=== PATIENT | female | born 1970 | race Caucasian/White ===

== ENCOUNTER → 2017-04-02 | Outpatient (CLI) | payer OTHER | LOC: CIMAGING 08:27 | PROVIDERS: ATTEND Family Medicine | DX: Z12.31 Encounter for screening mammogram for malignant neoplasm of breast (principal) | CPT/HCPCS: G0202 ==

== ENCOUNTER 2017-07-07 19:03 | Emergency (ER) | payer OTHER ==
--- NOTE | 2017-07-07 19:18 | EDPHY ---
H & P Stated Complaint: says n/v last pm, today tired/chills/fever, thinks she has uti also Source: Patient Exam Limitations: No limitations - Medical/Surgical History Hx Asthma: No Hx Chronic Respiratory Disease: No Hx Diabetes: No Hx Cardiac Disease: Yes Hx Renal Disease: No Hx Cirrhosis: No Hx Alcoholism: No Hx HIV/AIDS: No Hx Splenectomy or Spleen Trauma: No Other PMH: r ankle surgery, hysterectomy, hypothyroid, hypertension - Social History Smoking Status: Never smoked Time Seen by Provider: 07/07/17 19:18 HPI/ROS: HPI: This is a 47-year-old female who presents with Chief Complaint: says n/v last pm, today tired/chills/fever, thinks she has uti also Location:body Quality: Fever Duration: Since last night Signs and Symptoms: + fever, + nausea, + vomiting, no hematemesis, no blood in stool, no abdominal bloating, no diarrhea, + lower back pain, +o urinary symptoms, no vaginal bleeding/discharge, no indigestion, no chest pain, no shortness of breath Timing: Rapid onset, constant Severity: Moderate to severe Context: Patient presents with sudden onset of fatigue, chills, fever that started last night. She reports for the last 5 days she has had some increasing dysuria and is concerned now that she may have a urinary tract infection on top of what else is going on. She does complain of a dry cough with clear rhinorrhea. She was treated for sinus infection 1 month ago with antibiotics. Did not receive influenza vaccine this year. Denies meningismus/ abdominal pain/diarrhea/ear pain/sinus pain. Took Advil 1 hr prior to arrival. No recent long distance travel. Modifying Factors: See above Comment: ROS: see HPI Constitutional: + fever, + chills, no weight loss Eyes: No blurred vision Respiratory: No shortness of breath, no cough Cardiovascular: No chest pain, no palpitations Gastrointestinal: + nausea, + vomiting, no diarrhea, no hematemesis, no blood in stool Genitourinary: + dysuria, no blood in urine Extremities: No myalgias, no edema Neurologic: No weakness, no numbness Skin: No rashes, no petechiae Hematologic: No bruising, no bleeding MEDICAL/SURGICAL/SOCIAL HISTORY: Medical history: Hypothyroidism, hypertension Surgical history: r ankle surgery, hysterectomy Social history: . Employed. Family history noncontributory. CONSTITUTIONAL: Ill but nontoxic-appearing adult white female, awake and alert , no obvious distress HEENT: Atraumatic and normocephalic, PERRL, EOMI. Tympanic membranes clear. Oropharynx clear, no exudate and moist pink mucosa. Airway patent. No lymphadenopathy. No meningismus. Cardiovascular: Normal S1/S2, tachycardia, regular rhythm, without murmur rub or gallop. PULMONARY/CHEST: Symmetrical and nontender. Clear to auscultation bilaterally. Good air movement. No accessory muscle usage. ABDOMEN: Soft, nondistended, nontender, no rebound, no guarding, no peritoneal signs, no masses or organomegaly. No CVAT. EXTREMITIES: 2/2 pulses, strength 5/5, no deformities, no clubbing, no cyanosis or edema. Negative Homans sign. NEUROLOGICAL: no focal neuro deficits. GCS 15. SKIN: Warm and dry, no erythema. no rash. Good capillary refill. (Sushma Caballero) Constitutional: Initial Vital Signs Temperature (C) 38.1 C 07/07/17 19:08 Heart Rate 132 H 07/07/17 19:08 Respiratory Rate 18 07/07/17 19:08 Blood Pressure 143/96 H 07/07/17 19:08 O2 Sat (%) 89 L 07/07/17 19:08 O2 Delivery Mode Room Air O2 (L/minute) 2 Allergies/Adverse Reactions: No Known Allergies Allergy (Verified 07/07/17 19:13) Home Medications: Medication Instructions Recorded Herbals/Supplements -Info Only 1 ea PO DAILY 05/10/14 Ibuprofen [Motrin (OTC)] 400 mg PO Q6 PRN 05/10/14 Famotidine [Pepcid 20 MG (*)] 20 mg PO DAILY PRN 05/14/14 Ciprofloxacin [Cipro] 500 mg PO BID #20 tab 07/07/17 Promethazine HCl 25 mg PO Q6 PRN #10 tablet 07/07/17 Triamterene 07/07/17 Medical Decision Making - Diagnostics Imaging Results: Imaging Impressions Chest X-Ray 07/07/17 19:23 Impression: Possible early left lower lobe pneumonia. ED Course/Re-evaluation: Urinalysis, chest x-ray, labs, IV fluids, IV medications, oral medications ordered Vital signs reviewed upon arrival in show O2 sats 89% on room air and tachycardia. Low risk for pulmonary embolism. Will evaluate for pyelonephritis versus influenza versus pneumonia. Given 2 L normal saline, IV Toradol, p.o. Tylenol 1999: Labs reviewed: Minimal leukocytosis, potassium 2.7; taking triamterene; magnesium 1.4; Given p.o. potassium supplementation 40 mEq and magnesium oxide 800 mg. No signs of lactic acidosis. UA shows infection; sent for urine culture; IV Rocephin [address] abdomen and pelvis scan ordered but patient politely declined. Abdomen soft and nontender. Doubt surgical abdomen. Influenza negative 2199: Reassessed patient who reports that she feels 100% better. Again discussed obtaining imaging for abdomen and pelvis and she politely decline. Will treat as early pyelonephritis with fluoroquinolones. Rx Cipro given. Vital signs repeated at discharge and greatly improved. Passed p.o. Trial. This patient was seen under the supervision of my secondary supervising physician. I evaluated care for this patient independently. Discussed this patient with Dr. Pena who did not see the patient. (Sushma Caballero) The patient was evaluated and managed by the physician print shop assistant. I have reviewed this chart and I agree with the findings and plan of care as documented , as indicated by my signature. I am the secondary supervising physician. ( Sandrine Pena) Differential Diagnosis: Adult fever including but not limited to viral syndromes including influenza, urinary tract infection, pneumonia and sepsis. (Sushma Caballero) - Data Points Laboratory Results: Laboratory Results 07/07/17 19:32 07/07/17 19:32 07/07/17 07/07/17 07/07/17 20:23 20:20 19:35 WBC RBC Hgb Hct MCV MCH MCHC RDW Plt Count MPV Neut % (Auto) Lymph % (Auto) [place] % (Auto) Eos % (Auto) Baso % (Auto) Nucleat RBC Rel Count Absolute Neuts (auto) Absolute Lymphs (auto) Absolute Monos (auto) Absolute Eos (auto) Absolute Basos (auto) Absolute Nucleated RBC Immature Gran % Immature Gran # VBG Lactic Acid 2.1 mmol/L mmol/L (0.7-2.1) Sodium Potassium Chloride Carbon Dioxide Anion Gap BUN Creatinine Estimated GFR Glucose Calcium Magnesium 1.4 mg/dL L mg/dL (1.6-2.3) Total Bilirubin AST ALT Alkaline Phosphatase Total Protein Albumin Urine Color FROY Urine Appearance HAZY Urine pH 5.0 (5.0-7.5) Ur Specific [place] 1.014 (1.002-1.030) Urine Protein 1+ H (NEGATIVE) Urine Ketones NEGATIVE (NEGATIVE) Urine Blood 1+ H (NEGATIVE) Urine Nitrate POSITIVE H (NEGATIVE) Urine Bilirubin NEGATIVE (NEGATIVE) Urine Urobilinogen 4.0 EU H EU (0.2-1.0) Ur Leukocyte Esterase TRACE H (NEGATIVE) Urine RBC 5-10 /hpf H /hpf (0-3) Urine WBC 50-182 /hpf H /hpf (0-3) Ur Epithelial Cells TRACE /lpf /lpf (NONE-1+) Amorphous Sediment PRESENT /hpf /hpf (NONE-1+) Urine Bacteria 1+ /hpf H /hpf (NONE SEEN) Urine Glucose NEGATIVE (NEGATIVE) Nasal Influenza A PCR Nasal Influenza B PCR 07/07/17 07/07/17 07/07/17 19:32 19:32 19:32 WBC 9.83 10^3/uL H 10^3/uL (3.80-9.50) RBC 4.52 10^6/uL 10^6/uL (4.18-5.33) Hgb 13.9 g/dL g/dL (12.6-16.3) Hct 39.1 % % (38.0-47.0) MCV 86.5 fL fL (81.5-99.8) MCH 30.8 pg pg (27.9-34.1) MCHC 35.5 g/dL g/dL (32.4-36.7) RDW 14.3 % % (11.5-15.2) Plt Count 175 10^3/uL 10^3/uL (150-400) MPV 8.9 fL fL (8.7-11.7) Neut % (Auto) 82.0 % H % (39.3-74.2) Lymph % (Auto) 10.9 % L % (15.0-45.0) [place] % (Auto) 6.1 % % (4.5-13.0) Eos % (Auto) 0.2 % L % (0.6-7.6) Baso % (Auto) 0.5 % % (0.3-1.7) Nucleat RBC Rel Count 0.0 % % (0.0-0.2) Absolute Neuts (auto) 8.06 10^3/uL H 10^3/uL (1.70-6.50) Absolute Lymphs (auto) 1.07 10^3/uL 10^3/uL (1.00-3.00) Absolute Monos (auto) 0.60 10^3/uL 10^3/uL (0.30-0.80) Absolute Eos (auto) 0.02 10^3/uL L 10^3/uL (0.03-0.40) Absolute Basos (auto) 0.05 10^3/uL 10^3/uL (0.02-0.10) Absolute Nucleated RBC 0.00 10^3/uL 10^3/uL (0-0.01) Immature Gran % 0.3 % % (0.0-1.1) Immature Gran # 0.03 10^3/uL 10^3/uL (0.00-0.10) VBG Lactic Acid Sodium 137 mEq/L mEq/L (135-145) Potassium 2.7 mEq/L L* mEq/L (3.5-5.2) Chloride 98 mEq/L mEq/L (97-110) Carbon Dioxide 23 mEq/l mEq/l (22-31) Anion Gap 16 mEq/L mEq/L (8-16) BUN 18 mg/dL mg/dL (7-23) Creatinine 0.8 mg/dL mg/dL (0.6-1.0) Estimated GFR > 60 Glucose 136 mg/dL H mg/dL (70-100) Calcium 9.9 mg/dL mg/dL (8.5-10.4) Magnesium Total Bilirubin 1.6 mg/dL H mg/dL (0.1-1.4) AST 29 IU/L IU/L (14-46) ALT 47 IU/L IU/L (9-52) Alkaline Phosphatase 87 IU/L IU/L (38-126) Total Protein 6.9 g/dL g/dL (6.3-8.2) Albumin 4.4 g/dL g/dL (3.5-5.0) Urine Color Urine Appearance Urine pH Ur Specific [place] Urine Protein Urine Ketones Urine Blood Urine Nitrate Urine Bilirubin Urine Urobilinogen Ur Leukocyte Esterase Urine RBC Urine WBC Ur Epithelial Cells Amorphous Sediment Urine Bacteria Urine Glucose Nasal Influenza A PCR NEGATIVE FOR FLU A (NEGATIVE) Nasal Influenza B PCR NEGATIVE FOR FLU B (NEGATIVE) Medications Given: Discontinued Medications Acetaminophen (Tylenol) 1,000 mg PO EDNOW ONE Stop: 07/07/17 19:24 Last Admin: 07/07/17 19:38 Dose: 1,000 mg Sodium Chloride (Ns) 1,000 mls @ 0 mls/hr IV EDNOW ONE; Wide Open PRN Reason: Protocol Stop: 07/07/17 19:24 Last Admin: 07/07/17 19:29 Dose: 1,000 mls Sodium Chloride (Ns) 1,000 mls @ 0 mls/hr IV EDNOW ONE; Wide Open PRN Reason: Protocol Stop: 07/07/17 19:24 Last Admin: 07/07/17 19:29 Dose: 1,000 mls Ceftriaxone Sodium/Dextrose (Rocephin 1 Gm (Premix)) 50 mls @ 100 mls/hr IV EDNOW ONE PRN Reason: Protocol Stop: 07/07/17 21:55 Last Admin: 07/07/17 21:41 Dose: 50 mls Ketorolac Tromethamine (Toradol) 30 mg IVP EDNOW ONE Stop: 07/07/17 19:24 Last Admin: 07/07/17 19:37 Dose: 30 mg Magnesium Oxide (Magnesium Oxide) 800 mg PO ONCE ONE Stop: 07/07/17 20:14 Last Admin: 07/07/17 20:52 Dose: 800 mg Ondansetron HCl (Zofran) 4 mg IVP EDNOW ONE Stop: 07/07/17 19:24 Last Admin: 07/07/17 19:37 Dose: 4 mg Potassium Chloride (Potassium Chloride Oral Liquid) 40 meq PO EDNOW ONE Stop: 07/07/17 20:02 Last Admin: 07/07/17 20:11 Dose: 40 meq Departure - Departure Disposition: Home, Routine, Self-Care Clinical Impression: Lower urinary tract infection, acute Condition: Good Instructions: Urinary Tract Infection in Women (ED), Kidney Infection (ED) Additional Instructions: Take all the antibiotic until complete as directed. Consume a minimum of 8-10 glasses of water or electrolyte fluid replacement drinks that include Gatorade, Powerade, Pedialyte. Eat a bland diet for the next 48 hours and then slowly advance as tolerated. Take promethazine as needed for nausea, vomiting. Return to the Emergency Room if symptoms do not resolve in the next 48-72 hours , you spike a fever > 102 F, or experience intractable abdominal pain/nausea/ vomiting. Referrals: PCP Not In,Dictionary [Medical Doctor] - As per Instructions Prescriptions: Ciprofloxacin [Cipro] 500 mg PO BID #20 tab Promethazine HCl 25 mg PO Q6 PRN #10 tablet PRN Reason: Nausea/Vomiting, Use 1st
[2017-07-07] MEDS ORDERED: KETOROLAC 30 MG/1 ML SDV IVP ONE (19:23)
[2017-07-07] MEDS ORDERED: ONDANSETRON 4 MG/2 ML VIAL IVP ONE (19:23)
[2017-07-07] MEDS ORDERED: ACETAMINOPHEN 500 MG TAB PO ONE (19:23)
[2017-07-07] MEDS ORDERED: NS 1,000 ML IV ONE ×2 (19:23)
[2017-07-07 19:39] VITALS: RESP 16
[2017-07-07 19:40] LABS: PLATELET COUNT 175 10^3/uL (150-400)
[2017-07-07] MEDS ORDERED: POTASSIUM CL 20 MEQ/15 ML UDCUP PO ONE (20:01)
[2017-07-07] MEDS ORDERED: MAGNESIUM OXIDE 400 MG TAB PO ONE (20:13)
[2017-07-07] MEDS ORDERED: IOPAMIDOL (ISOVUE-300) 100 ML BTL ONE (21:46)
[2017-07-07 22:19] VITALS: BP 98/64; PULSE 74; TEMP 98.8; O2SAT 90
== END 2017-07-07 22:19 | disposition home or self-care (01) ==
DX: N39.0 Urinary tract infection, site not specified (principal); B96.20 Unspecified Escherichia coli [E. coli] as the cause of diseases classified elsewhere; I10 Essential (primary) hypertension; E86.9 Volume depletion, unspecified
CPT/HCPCS: 96365; J0696; J1885; J2405; Q9967

== ENCOUNTER 2017-07-08 04:38 | Inpatient (IN) | payer BC, OTHER ==
[2017-07-08] MEDS ORDERED: NS 1,000 ML IV ONE ×3 (04:40→05:35)
--- NOTE | 2017-07-08 04:40 | EDPHY ---
H & P Time Seen by Provider: 07/08/17 04:48 HPI/ROS: HPI CHIEF COMPLAINT: Fever, tachycardia, not feeling well HISTORY OF PRESENT ILLNESS: Patient is a 47-year-old female, presents to the emergency room with ongoing fevers to 103 here in emergency room, and tachycardia to the 113s, she was seen here earlier last night around 10:00 p.m. with fever diagnosed with UTI with nitrite positive. Blood cultures and urine culture were sent. She received 1 g of Rocephin. She felt much better. She went home. She now presents back to the emergency room febrile and tachycardic and feeling bad. She states she has been sick since Saturday with generalized weakness, and ongoing back pain. She noticed her back pain on Saturday and dysuria. This has been persistent for the past 3 days. Patient now presents emergency room stating she is having worsening back pain nausea. No vomiting. Ongoing dysuria. Fever. Previous ER record and workup reviewed. Past Medical History: Hypertension Past Surgical History: Hysterectomy Social History: Denies drugs alcohol tobacco products. Family History: Noncontributory ROS REVIEW OF SYSTEMS: A comprehensive 10 point review of systems is otherwise negative aside from elements mentioned in the history of present illness. Exam Constitutional triage nursing summary reviewed, vital signs reviewed, awake/ alert. Vital signs noted at triage hypoxic 89%, tachycardic in the 110, febrile to 103 Eyes normal conjunctivae and sclera, EOMI, PERRLA. HENT normal inspection, atraumatic, moist mucus membranes, no epistaxis, neck supple/ no meningismus, no raccoon eyes. Respiratory clear to auscultation bilaterally, normal breath sounds, no respiratory distress, no wheezing. Cardiovascular tachycardic, regular rhythm, no murmur, no edema, distal pulses normal. Gastrointestinal soft, non-tender, no rebound, no guarding, normal bowel sounds, no distension, no pulsatile mass. Genitourinary no CVA tenderness. Musculoskeletal no midline vertebral tenderness, full range of motion, no calf swelling, no tenderness of extremities, no meningismus, good pulses, neurovascularly intact. Skin diaphoretic, pink, warm, no rash, skin atraumatic. Neurologic awake, alert and oriented x 3, AAOx3, moves all 4 extremities equally, motor intact, sensory intact, CN II-XII intact, normal cerebellar, normal vision, normal speech. Psychiatric normal mood/affect. Heme/Lymph/Immune no lymphadenopathy. Differential Diagnosis: Includes but is not limited to in a particular order worsening urinary tract infection, bacteremia, sepsis, dehydration, electrolyte disturbance, acute febrile illness, intra-abdominal abscess, acute intra- abdominal process, pyelonephritis, cystitis Medical Decision Making: Plan for this patient IV establishment with blood draw , IV Rocephin 1 mg, IV azithromycin for a possible left lower lobe pneumonia previously seen on her x-ray, repeat x-ray, proceed with CT scan abdomen pelvis with IV contrast, IV fluid bolus 2 L normal saline, check lactic acid. Blood cultures and urine culture or descend from previous ER visit. Will admit to the hospital for UTI, dehydration, tachycardia, acute febrile illness Re-evaluation: 0536AM: Lactic acid resulted at 3.2. Sepsis protocol ordered. Received 3 L normal saline according to the protocol. Blood pressure stable at this time. 0553: Spoke with the hospitalist service Dr. Panchal, Who Agrees to admit. CT pending at this time. CT scan abdomen pelvis with IV contrast no evidence significant stranding around the kidneys. Both ureters do show some inflammation most likely consistent with pyelonephritis. Called to me by Dr. Jonathan Portillo. Source: Patient, Family - Medical/Surgical History Hx Asthma: No Hx Chronic Respiratory Disease: No Hx Diabetes: No Hx Cardiac Disease: Yes Hx Renal Disease: No Hx Cirrhosis: No Hx Alcoholism: No Hx HIV/AIDS: No Hx Splenectomy or Spleen Trauma: No Other PMH: r ankle surgery, hysterectomy, hypothyroid, hypertension - Social History Smoking Status: Never smoked Constitutional: Initial Vital Signs Temperature (C) 39.4 C H 07/08/17 04:47 Heart Rate 111 H 07/08/17 04:47 Respiratory Rate 20 07/08/17 04:47 Blood Pressure 134/77 H 07/08/17 04:47 O2 Sat (%) 89 L 07/08/17 04:47 O2 Delivery Mode Room Air O2 (L/minute) 0 Allergies/Adverse Reactions: No Known Allergies Allergy (Verified 07/08/17 04:53) Home Medications: Medication Instructions Recorded Ciprofloxacin [Cipro] 500 mg PO BID #20 tab 07/07/17 Biesta 1.75mg/0.25ml 1 isidro TP DAILY 07/08/17 Compounded Progesterone 200mg 1 each PO HS 07/08/17 Dhea/Progenolone 1 each PO DAILY 07/08/17 Glucosamine Sulfate [Glucosamine 500 mg PO DAILY 07/08/17 Sulfate 500 MG (*)] Levothyroxine [Synthroid 50 mcg 50 mcg PO DAILY06 07/08/17 (*)] [place]-3 Fatty Acids [Fish Oil 1000 1,000 mg PO DAILY 07/08/17 mg (*)] Progesterone 50mg/0.25ml Cream 1 isidro TP HS 07/08/17 Triamterene/Hctz 37.5/25 [Dyazide 1 each PO DAILY 07/08/17 37.5/25 (*)] Vitamin B Complex/Folic Acid 0.4 mg PO DAILY 07/08/17 [B-Complex Tablet] metFORMIN SR [Glucophage XR 500 mg 1,000 mg PO DAILY 07/08/17 (*)] Medical Decision Making - Data Points Laboratory Results: Laboratory Results 07/09/17 05:50 07/09/17 05:50 07/09/17 13:20 POC Glucose 85 mg/dL mg/dL (70-100) Microbiology Results: MICROBIOLOGY 07/08/17 05:50 Sputum, Expectorated - Final 07/08/17 05:50 Sputum, Expectorated Sputum Culture - Final Medications Given: Acetaminophen (Tylenol) 650 mg PO Q4HRS PRN PRN Reason: Pain, Mild/Fever, Can Take PO Stop: 01/04/18 05:52 Last Admin: 07/09/17 17:13 Dose: 650 mg Diphenhydramine HCl (Benadryl) 25 mg PO ONCE PRN PRN Reason: migraine (give with imitrex) Stop: 01/05/18 17:49 Last Admin: 07/09/17 22:27 Dose: 25 mg Enoxaparin Sodium (Lovenox) 40 mg SC DAILY [facility] Stop: 01/04/18 08:59 Last Admin: 07/09/17 09:00 Dose: 40 mg Ceftriaxone Sodium/Dextrose (Rocephin 1 Gm (Premix)) 50 mls @ 100 mls/hr IV DAILY [facility] Stop: 08/08/17 08:59 Last Admin: 07/09/17 09:00 Dose: 50 mls Insulin Human Lispro (Humalog Lispro) 0 unit SC TIDMEAL [facility] PRN Reason: Protocol Stop: 01/04/18 11:59 Last Admin: 07/09/17 19:10 Dose: Not Given Levothyroxine Sodium (Synthroid) 50 mcg PO DAILY06 [facility] Stop: 01/04/18 09:44 Last Admin: 07/09/17 05:51 Dose: 50 mcg Miscellaneous Medication (Compounded Progesterone 200mg) 1 each PO HS [facility] Stop: 01/05/18 20:59 Last Admin: 07/09/17 22:28 Dose: Not Given Miscellaneous Medication (Dhea/Progenolone) 1 each PO DAILY [facility] Stop: 01/05/18 10:29 Last Admin: 07/09/17 14:10 Dose: Not Given Ondansetron HCl (Zofran) 4 mg IVP Q4HRS PRN PRN Reason: Nausea/Vomiting, Can't Take PO Stop: 01/04/18 05:52 Last Admin: 07/08/17 18:47 Dose: 4 mg Sumatriptan Succinate (Imitrex) 50 mg PO ONCE PRN PRN Reason: migraine Stop: 01/05/18 17:48 Last Admin: 07/09/17 22:26 Dose: 50 mg Discontinued Medications Diphenhydramine HCl (Benadryl) 25 mg PO ONCE ONE Stop: 07/09/17 13:40 Last Admin: 07/09/17 14:08 Dose: 25 mg Sodium Chloride (Ns) 1,000 mls @ 0 mls/hr IV EDNOW ONE; Wide Open PRN Reason: Protocol Stop: 07/08/17 04:41 Last Admin: 07/08/17 05:10 Dose: 1,000 mls Sodium Chloride (Ns) 1,000 mls @ 0 mls/hr IV ONCE ONE PRN Reason: Wide Open Stop: 07/08/17 04:52 Last Admin: 07/08/17 05:13 Dose: 1,000 mls Ceftriaxone Sodium/Dextrose (Rocephin 1 Gm (Premix)) 50 mls @ 100 mls/hr IV EDNOW ONE PRN Reason: Protocol Stop: 07/08/17 05:22 Last Admin: 07/08/17 05:16 Dose: 50 mls Azithromycin 500 mg/ Dextrose 255 mls @ 255 mls/hr IV EDNOW ONE PRN Reason: Protocol Stop: 07/08/17 05:52 Last Admin: 07/08/17 05:27 Dose: 255 mls Sodium Chloride (Ns) 1,000 mls @ 0 mls/hr IV ONCE ONE PRN Reason: Wide Open Stop: 07/08/17 05:36 Last Admin: 07/08/17 06:00 Dose: 1,000 mls Potassium Chloride (Potassium Cl 20 Meq (Premix)) 50 mls @ 25 mls/hr IV EDNOW ONE Stop: 07/08/17 07:41 Last Admin: 07/08/17 11:32 Dose: Not Given Potassium Chloride 10 meq/ (Sodium Chloride) 100 mls @ 100 mls/hr IV Q1H [facility] Stop: 07/08/17 08:29 Last Admin: 07/08/17 08:08 Dose: 100 mls Lactated Ringer's (Lr) 1,000 mls @ 500 mls/hr IV EDNOW ONE Stop: 07/08/17 08:51 Last Admin: 07/08/17 08:08 Dose: 1,000 mls Potassium Chloride/Sodium Chloride (Ns W/ 20 Kcl/L) 1,000 mls @ 125 mls/hr IV CONT [facility] Stop: 01/04/18 09:44 Last Admin: 07/08/17 21:09 Dose: 1,000 mls Magnesium Sulfate (Magnesium Sulf 2 Gm (Premix)) 50 mls @ 50 mls/hr IV ONCE ONE Stop: 07/08/17 10:56 Last Admin: 07/08/17 10:21 Dose: 50 mls Albumin Human (Alburx 5) 500 mls @ 0 mls/hr IV ONCE ONE PRN Reason: As Directed Stop: 07/08/17 11:34 Last Admin: 07/08/17 11:30 Dose: 500 mls Ibuprofen (Motrin) 400 mg PO ONCE ONE Stop: 07/09/17 00:36 Last Admin: 07/09/17 00:52 Dose: 400 mg Ibuprofen (Motrin) 400 mg PO ONCE ONE Stop: 07/09/17 06:11 Last Admin: 07/09/17 06:33 Dose: 400 mg Ketorolac Tromethamine (Toradol) 15 mg IVP ONCE ONE Stop: 07/09/17 09:58 Last Admin: 07/09/17 10:20 Dose: 15 mg Morphine Sulfate (Morphine) 4 mg IVP EDNOW ONE Stop: 07/08/17 05:00 Last Admin: 07/08/17 05:16 Dose: 4 mg Potassium Chloride (Klor-Con) 40 meq PO ONCE ONE Stop: 07/08/17 10:16 Last Admin: 07/08/17 10:22 Dose: 40 meq Potassium Chloride (Klor-Con) 10 - 40 meq PO ONCE ONE PRN Reason: Protocol Stop: 07/08/17 12:42 Last Admin: 07/08/17 13:01 Dose: 30 meq Potassium Chloride (Klor-Con) 10 - 40 meq PO ONCE ONE PRN Reason: Protocol Stop: 07/09/17 07:01 Last Admin: 07/09/17 10:25 Dose: 10 meq Promethazine HCl (Phenergan) 12.5 mg IVP ONCE ONE Stop: 07/09/17 09:59 Last Admin: 07/09/17 10:20 Dose: 12.5 mg Sumatriptan Succinate (Imitrex) 50 mg PO ONCE ONE Stop: 07/09/17 13:39 Last Admin: 07/09/17 14:08 Dose: 50 mg Point of Care Test Results: 07/09/17 13:20 POC Glucose 85 Departure - Departure Disposition: [facility] Acute Clinical Impression: Pyelonephritis, Dehydration, Febrile illness UTI (urinary tract infection) Qualifiers: Urinary tract infection type: acute pyelonephritis Qualified Code(s): N10 - Acute pyelonephritis Sepsis Qualifiers: Sepsis type: sepsis due to unspecified organism Qualified Code(s): A41.9 - Sepsis, unspecified organism Condition: Serious
[2017-07-08] MEDS ORDERED: AZITHROMYCIN IV 500 MG in D5W 250 ML IV ONE (04:53)
[2017-07-08 05:18] LABS: PLATELET COUNT 128 10^3/uL (150-400)
[2017-07-08] MEDS ORDERED: POTASSIUM Cl (KCl) 50 ML IV ONE (05:42)
[2017-07-08] MEDS ORDERED: ONDANSETRON DISINTEGRATING 4 MG TAB PO PRN (05:53)
[2017-07-08] MEDS ORDERED: ONDANSETRON 4 MG/2 ML VIAL IVP PRN (05:53)
[2017-07-08] MEDS ORDERED: POTASSIUM Cl (KCl) 100 ML IV ONE ×2 (06:11)
--- NOTE | 2017-07-08 06:11 | PDGENHP ---
History and Physical - Chief Complaint Fever - History of Present Illness 47 yo F w/ HTN presents with ongoing fevers and tachycardia. Patient was seen in the ED last evening when she presented with 3 days of fever, dysuria, and back pain. She was diagnosed with a UTI and sent home with oral antibiotics. Blood and urine cultures were drawn. After arriving at home she again began to feel poorly and febrile. In the ED work-up was notable for elevated lactic acid, new leukopenia, and thrombocytopenia. UA was notable for +nitrites and >50 WBCs. History Information - Allergies/Home Medication List Allergies/Adverse Reactions: No Known Allergies Allergy (Verified 07/08/17 04:53) Home Medications: Herbals/Supplements -Info Only 1 ea PO DAILY 05/10/14 [Last Taken 05/26/14 07:00 ] Ibuprofen [Motrin (OTC)] 400 mg PO Q6 PRN 05/10/14 [Last Taken 05/24/14] Famotidine [Pepcid 20 MG (*)] 20 mg PO DAILY PRN 05/14/14 [Last Taken 05/22/14] Triamterene 07/07/17 [Last Taken Unknown] I have personally reviewed and updated: family history, medical history - Past Medical History hypertension - Family History Positive for: cancer - Social History Smoking Status: Never smoked Review of Systems Review of Systems: ROS: 10pt was reviewed & negative except for what was stated in HPI & below Physical Exam Physical Exam: Temp Pulse Resp BP Pulse Ox 39.4 C H 99 14 110/70 96 07/08/17 04:47 07/08/17 05:30 07/08/17 05:30 07/08/17 05:30 07/08/17 05:30 Constitutional: appears nourished, uncomfortable Eyes: PERRL, EOMI Ears, Nose, Mouth, Throat: moist mucous membranes, no oral mucosal ulcers Cardiovascular: no murmur, rub, or gallop, tachycardia Respiratory: no respiratory distress, clear to auscultation Gastrointestinal: normoactive bowel sounds, soft, non-tender abdomen Genitourinary: other (R CVAT) Skin: warm, erythema (Facial) Neurologic: AAOx3, CN II-XII Intact Psychiatric: interacting appropriately, not anxious Lab Data & Imaging Review 07/08/17 05:05 07/08/17 05:05 WBC 2.57 10^3/uL (3.80-9.50) L D 07/08/17 05:05 RBC 3.88 10^6/uL (4.18-5.33) L 07/08/17 05:05 Hgb 11.9 g/dL (12.6-16.3) L 07/08/17 05:05 Hct 33.8 % (38.0-47.0) L 07/08/17 05:05 MCV 87.1 fL (81.5-99.8) 07/08/17 05:05 MCH 30.7 pg (27.9-34.1) 07/08/17 05:05 MCHC 35.2 g/dL (32.4-36.7) 07/08/17 05:05 RDW 14.6 % (11.5-15.2) 07/08/17 05:05 Plt Count 128 10^3/uL (150-400) L 07/08/17 05:05 MPV 9.1 fL (8.7-11.7) 07/08/17 05:05 Neut % (Auto) 80.9 % (39.3-74.2) H 07/08/17 05:05 Lymph % (Auto) 14.8 % (15.0-45.0) L 07/08/17 05:05 Campbell % (Auto) 2.7 % (4.5-13.0) L 07/08/17 05:05 Eos % (Auto) 0.8 % (0.6-7.6) 07/08/17 05:05 Baso % (Auto) 0.4 % (0.3-1.7) 07/08/17 05:05 Nucleat RBC Rel Count 0.0 % (0.0-0.2) 07/08/17 05:05 Absolute Neuts (auto) 2.08 10^3/uL (1.70-6.50) 07/08/17 05:05 Absolute Lymphs (auto) 0.38 10^3/uL (1.00-3.00) L 07/08/17 05:05 Absolute Monos (auto) 0.07 10^3/uL (0.30-0.80) L 07/08/17 05:05 Absolute Eos (auto) 0.02 10^3/uL (0.03-0.40) L 07/08/17 05:05 Absolute Basos (auto) 0.01 10^3/uL (0.02-0.10) L 07/08/17 05:05 Absolute Nucleated RBC 0.00 10^3/uL (0-0.01) 07/08/17 05:05 Immature Gran % 0.4 % (0.0-1.1) 07/08/17 05:05 Immature Gran # 0.01 10^3/uL (0.00-0.10) 07/08/17 05:05 VBG Lactic Acid 3.2 mmol/L (0.7-2.1) H D 07/08/17 05:05 Sodium 137 mEq/L (135-145) 07/08/17 05:05 Potassium 2.8 mEq/L (3.5-5.2) L 07/08/17 05:05 Chloride 101 mEq/L (97-110) 07/08/17 05:05 Carbon Dioxide 22 mEq/l (22-31) 07/08/17 05:05 Anion Gap 14 mEq/L (8-16) 07/08/17 05:05 BUN 20 mg/dL (7-23) 07/08/17 05:05 Creatinine 1.0 mg/dL (0.6-1.0) 07/08/17 05:05 Estimated GFR 59 07/08/17 05:05 Glucose 129 mg/dL (70-100) H 07/08/17 05:05 Calcium 9.1 mg/dL (8.5-10.4) 07/08/17 05:05 Assessment & Plan Assessment: 47 yo F w/ HTN presents with sepsis from pyelonephritis. Plan: 1. Sepsis 2/2 pyelonephritis - 3/4 SIRS (T, HR, WBC), SOFA of 6 on admission despite receiving antibiotics last evening in the ED. Dysuria, back pain, and UA w/ +nitrites and >50 WBCs suggestive of pyelonephritis. - Admit to SDU for observation - S/p 3L IVF in ED per sepsis protocol, continue aggressive rehydration - CTX 1 g qD - Blood and urine cultures pending - CT A/P to rule out complicating factors Diet - Regular Code - Full Ppx - LMWH Dispo - Admit to SDU under observation status
[2017-07-08 06:17] LABS: INR 1.09 (0.83-1.16); PROTIME(PATIENT) 14.3 SEC (12.0-15.0)
[2017-07-08] MEDS: POTASSIUM Cl (KCl) 10 MEQ in NS 100 ML IV SCH ×2 (06:34→08:08)
[2017-07-08] MEDS ORDERED: LR 1,000 ML IV ONE (06:52)
[2017-07-08] MEDS ORDERED: PROTOCOL POTASSIUM 1 DOSE MISC PRN ×2 (09:25→10:36)
[2017-07-08] MEDS ORDERED: PROTOCOL MAGNESIUM 1 DOSE IV PRN (09:25)
--- NOTE | 2017-07-08 09:25 | ASMTCMCOM ---
CM Note CM Note Notes: 47yr old female admitted for fever, sepsis-UTI, pyelonephritis, S/P hysterectomy. Patient lives with her . This CM not anticipating that patient will have discharge needs. Date Signed: 07/08/2017 09:24 AM Electronically Signed By:Carmella Villafana LCSW
--- NOTE | 2017-07-08 09:29 | HOSPPROG ---
Hospitalist Progress Note Assessment/Plan: # Sepsis 2/2 pyelonephritis - 07/07 SIRS (T, HR, WBC), SOFA of 6 on admission. Dysuria, back pain, and UA w/ +nitrites and >50 WBCs suggestive of pyelonephritis. CT abd showed urothelial inflammation. BCx's and UCx pending from 07/07 ED visit. - S/p 4L IVF boluses, cont maintenance IVF's - CTX 1 g daily - await culture data # Hypertension - currently hypotensive, holding meds. S/P 4.5 fluid bolus. NICOM done, not fluid responsive. - may need PICC / pressors if not improving # Hypokalemia / Hypomagnesemia - replace per protocol # Chest pain - reported on arrival to SDU. - check EKG, trend trop # Diabetes - bg's 100's. - hold metformin - SSI # Hypothyroid - cont home synthroid dose Diet - Regular Code - Full Ppx - LMWH Dispo - Obs Subjective: Pt came to ED 07/07 for fever, dysuria and urgency. She also endorses productive cough, since mid-May, notes sinus infection. Cough is better. She took a Zpack 2 weeks ago. This am, she reports chest pressure, hard to take a deep breath. Objective: Vital Signs Temp Pulse Resp BP Pulse Ox 36.9 C 88 10 L 84/54 L 97 07/08/17 08:05 07/08/17 08:05 07/08/17 08:05 07/08/17 08:05 07/08/17 08:05 07/07/17 07/08/17 07/09/17 05:59 05:59 05:59 Intake Total 3300 Output Total 700 Balance 2600 PT 14.3 SEC (12.0-15.0) 07/08/17 05:03 INR 1.09 (0.83-1.16) 07/08/17 05:03 - Physical Exam Constitutional: no apparent distress Eyes: PERRL Ears, Nose, Mouth, Throat: moist mucous membranes Cardiovascular: regular rate and rhythym Respiratory: no respiratory distress, clear to auscultation Gastrointestinal: normoactive bowel sounds, soft, non-tender abdomen Skin: warm Musculoskeletal: full muscle strength Neurologic: AAOx3 Psychiatric: interacting appropriately ICD10 Worksheet Patient Problems: Problems Problem Status Onset Dehydration Acute Febrile illness Acute Pyelonephritis Acute Sepsis Acute UTI (urinary tract infection) Acute S/P laparoscopic assisted vaginal hysterectomy ([facility]) Acute
[2017-07-08] MEDS ORDERED: D50W 25 GM/50 ML SYR IVP PRN (09:33)
[2017-07-08] MEDS ORDERED: MAGNESIUM SULF 2 GM/WATER 50 ML IV ONE (09:57)
[2017-07-08] MEDS ORDERED: POTASSIUM Cl (KCl) 50 ML IV SCH (10:00)
[2017-07-08] MEDS: NS W/ 20 KCl/L 1,000 ML IV SCH ×2 (10:00→21:09)
[2017-07-08] MEDS: ENOXAPARIN 40 MG/0.4 ML SYR SC SCH (10:01)
[2017-07-08] MEDS ORDERED: POTASSIUM CL 20 MEQ TAB PO ONE (10:15)
--- NOTE | 2017-07-08 10:20 | CPEKG ---
Heart Rate: 84 RR Interval: 714 P-R Interval: 160 QRSD Interval: 86 QT Interval: 384 QTC Interval: 454 P Bradley: 41 QRS Bradley: 34 T Wave Bradley: -5 EKG Severity - NORMAL ECG - EKG Impression: SINUS RHYTHM EKG Impression: INCOMPLETE RIGHT BUNDLE BRANCH BLOCK Electronically Signed By: Jacky Mosher 08-Jul-2017 10:27:28
[2017-07-08] MEDS: LEVOTHYROXINE 50 MCG TAB PO SCH (10:21)
[2017-07-08] MEDS ORDERED: ALBUMIN 5% 500 ML BOTTLE IV ONE (11:32)
[2017-07-08] MEDS ORDERED: ALBUMIN 5% 500 ML IV ONE (11:33)
[2017-07-08] MEDS ORDERED: POTASSIUM CL 10 MEQ TAB PO ONE (12:41)
[2017-07-08] MEDS: INSULIN LISPRO 100 UNIT/ML SC SCH ×2 (12:58→18:45)
[2017-07-08] MEDS: ACETAMINOPHEN 325 MG TAB PO PRN ×2 (13:01→21:09)
--- NOTE | 2017-07-08 14:45 | GCON ---
[f rep st] CONSULTATION PULMONARY CRITICAL CARE CONSULTATION. DATE OF CONSULTATION: 07/08/2017 REASON FOR CONSULTATION: Intensive care unit evaluation and management of sepsis, presumably secondary to urinary tract infection. HISTORY: The patient is a very pleasant 47-year-old healthy woman. She presented to the emergency department last night with 3 days of fevers, chills, and malaise, associated with urinary tract symptoms. She had some urinary burning and some right flank discomfort. Urinalysis showed evidence of pyuria and bacteriuria. Cultures were obtained. She was started on ciprofloxacin and discharged home after intravenous fluids. She was tachycardic and febrile, mildly hypertensive, and hyponatremic. White blood cell count was 9800. Following her return to home, she had fevers to as high as 105. She felt terrible and thus returned to the emergency department early this morning. She was hypotensive at that time, leukopenic. Initial blood lactate was elevated at approximately 3.5. Blood pressures have been borderline. She was febrile to 39.4 on admission. She was admitted to the step-down unit with sepsis. She was given 4 L of intravenous fluids. She has not required pressor therapy; however, blood pressures remain borderline, with mean arterial pressures in the 60-65 range. She feels better. She is nauseated, has some right flank discomfort. CT scan of the abdomen and pelvis are relatively unremarkable. There is no evidence of pyelonephritis per se. Some enhancement of the mucosal lining of the urinary tract is seen, right greater than left. Cultures remain negative so far. PAST MEDICAL HISTORY: Relatively unremarkable. MEDICATIONS: She has mild type 2 diabetes and is on metformin, hypothyroidism on replacement and triamterene hydrochlorothiazide. DRUG ALLERGIES: No known drug allergies. 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 FAMILY HISTORY: Noncontributory. REVIEW OF SYSTEMS: There is no history of heart or lung disease, thromboembolic disease, renal problems, etc. She has had 1 urinary tract infection in the past. PHYSICAL EXAMINATION: GENERAL: A pleasant woman who appears somewhat ill and tired. VITAL SIGNS: Current blood pressure is 84/55 with AMAP of 62. Heart rate is 82 with sinus rhythm on the monitor. Respiratory rate is 18-20. On 2 L nasal cannula, saturations are 98%. She is currently afebrile. HEENT: Unremarkable for lymphadenopathy or thyromegaly. There is no jugular venous distention. Mucous membranes are moist. CHEST: Clear bilaterally. Breath sounds are diminished at the bases. There are no rales, no rhonchi. HEART: Regular in rate and rhythm without significant murmur. There is no gallop. ABDOMEN: Soft and nontender. With deep palpation, there is mild tenderness in the right upper quadrant area and some mild tenderness related to the right flank. There is no Bruno catheter in place. EXTREMITIES: Unremarkable for edema, cords, or tenderness. NEUROLOGIC: Nonfocal and intact. DATABASE: CT scan of the abdomen and pelvis is as outlined above. Some other issues were commented on regarding some possible abnormalities or variants related to the liver, some mild bibasilar atelectasis, etc. LABORATORY: White blood cell count is 2500, hematocrit 33.8, platelets 128, 000. There is a shift to the left. PT and PTT were normal on admission. Repeat blood lactate this morning, an hour and 45 minutes after the blood lactate in the 3 range, was normal at 1.7. Sodium is 137, potassium 2.8, BUN 20 with creatinine of 1.0. Glucose is 129, magnesium 1.3, normal liver function studies, normal troponin, albumin is 3.3. ASSESSMENT: 1. Pyelonephritis. 2. Hypotension, sepsis. 3. Hypokalemia. 4. Leukopenia and mild thrombocytopenia secondary to infection. PLAN AND RECOMMENDATIONS: Antibiotics will be continued. She is getting ceftriaxone daily. Intravenous fluids will be continued with normal saline with potassium at 125 mL per hour. Albumin will be given 5%, 500 mL x1. If blood pressure continues to be an issue then pressors will be required. Repeat NICOM assessment for fluid responsiveness, which was negative earlier this morning, may be needed. Laboratory will be followed. Cultures will be awaited. Enoxaparin will be continued for DVT prophylaxis. GI prophylaxis is not required as she is eating. Further plans and recommendations will be made based on her progress over the next 12-24 hours. /[id number]/MODL MTDD
[2017-07-09] MEDS ORDERED: IBUPROFEN 200 MG TAB PO ONE ×2 (00:35→06:10)
[2017-07-09] MEDS: ACETAMINOPHEN 325 MG TAB PO PRN ×2 (00:51→17:13)
[2017-07-09] MEDS: LEVOTHYROXINE 50 MCG TAB PO SCH (05:51)
[2017-07-09 06:08] LABS: PLATELET COUNT 113 10^3/uL (150-400)
[2017-07-09] MEDS ORDERED: POTASSIUM CL 10 MEQ TAB PO ONE (07:00)
[2017-07-09] MEDS: INSULIN LISPRO 100 UNIT/ML SC SCH ×3 (07:39→19:10)
[2017-07-09] MEDS: ENOXAPARIN 40 MG/0.4 ML SYR SC SCH (09:00)
[2017-07-09] MEDS ORDERED: cefTRIAXone 1 GM in STERILE WATER INJ 10 ML IV SCH (09:00)
[2017-07-09] MEDS ORDERED: KETOROLAC 15 MG/1 ML SDV IVP ONE (09:57)
[2017-07-09] MEDS ORDERED: PROMETHAZINE HCL 25 MG/ML INJ IVP ONE (09:58)
--- NOTE | 2017-07-09 10:25 | HOSPPROG ---
Hospitalist Progress Note Assessment/Plan: # Sepsis 2/2 pyelonephritis - 3/4 SIRS (T, HR, WBC), SOFA 6 on admission. Has not required pressors. CT abd showed urothelial inflammation. UCx with GNR's, non-lactose community representative. BCx's ngtd (07/07 ED visit). BP's improved. - Cont Ceftriaxone - await UCx / sensitivities - can likely change to oral atbx tomorrow if sensitivities available. # Hypertension - hypotensive on admission, BP's now normalized with IVF resuscitation - holding outpt anti-hypertensives, resume as indicated # Hypokalemia / Hypomagnesemia - replaced # Chest pain - reported on arrival to SDU, resolved. - ekg non-ischemic, trops neg x2 # Diabetes - bg's 100's. - holding metformin given recent contrast load - cont SSI # Migraine agee - unilateral with photosensitivity, has h/o migraines though not for ~3 yrs - IV toradol / phenergan - resume outpt hormone therapy, not sure if holding these played a role in provoking agee # Hypothyroid - cont home synthroid dose Diet - Regular Code - Full Ppx - LMWH Dispo - change to inpt for ongoing management of sepsis / pyelo, transfer to med surg. Discussed with Dr. Arias, care team. Subjective: Pt c/o migraine headache with light sensitivity. Some nausea, no vomiting. Otherwise says she feels better. Back pain and dysuria are resolved. No fevers. No abdominal pain Objective: Vital Signs Temp Pulse Resp BP Pulse Ox 36.6 C 71 17 124/85 H 94 07/09/17 06:00 07/09/17 06:00 07/09/17 08:00 07/09/17 08:00 07/09/17 08:00 Laboratory Results 07/09/17 05:50 07/09/17 05:50 07/08/17 07/09/17 07/10/17 05:59 05:59 05:59 Intake Total 8051 Output Total 3100 Balance 4951 PT 14.3 SEC (12.0-15.0) 07/08/17 05:03 INR 1.09 (0.83-1.16) 07/08/17 05:03 - Physical Exam Constitutional: no apparent distress Eyes: PERRL Ears, Nose, Mouth, Throat: moist mucous membranes Cardiovascular: regular rate and rhythym Respiratory: no respiratory distress, clear to auscultation Gastrointestinal: normoactive bowel sounds, soft, non-tender abdomen Skin: warm Musculoskeletal: full muscle strength Neurologic: AAOx3 Psychiatric: interacting appropriately ICD10 Worksheet Patient Problems: Problems Problem Status Onset Dehydration Acute Febrile illness Acute Pyelonephritis Acute Sepsis Acute UTI (urinary tract infection) Acute S/P laparoscopic assisted vaginal hysterectomy ([facility]) Acute
[2017-07-09 11:30] VITALS: RESP 16
[2017-07-09] MEDS ORDERED: SUMAtriptan 50 MG TAB PO ONE (13:38)
[2017-07-09] MEDS ORDERED: diphenhydrAMINE 25 MG CAP PO ONE (13:39)
[2017-07-09] MEDS: DHEA PO SCH (14:10)
[2017-07-09] MEDS: [UNRECOGNIZED DRUG - OTHER] PO SCH (14:10)
[2017-07-09] MEDS ORDERED: SUMAtriptan 50 MG TAB PO PRN (17:49)
[2017-07-09] MEDS ORDERED: diphenhydrAMINE 25 MG CAP PO PRN (17:50)
--- NOTE | 2017-07-09 20:20 | PDMN ---
Medical Necessity Medical necessity: Patient meets inpatient criteria per physician note and MCG M -300 Pyelonephritis, Acute (sepsis secondary to pyelonephritis, ED urine cultures show GNR; 3/4 SIRS criteria met (T, HR, WBC); LOS will be > 2 midnights for ongoing IV antibiotics, further eval and treatment.)
[2017-07-09] MEDS ORDERED: COMPOUNDED PROGESTERONE 200 MG PO SCH (21:00)
[2017-07-10] MEDS: ACETAMINOPHEN 325 MG TAB PO PRN ×2 (00:30→13:03)
[2017-07-10] MEDS ORDERED: SUMAtriptan 50 MG TAB PO ONE (04:47)
[2017-07-10] MEDS ORDERED: diphenhydrAMINE 25 MG CAP PO PRN (04:48)
[2017-07-10] MEDS: LEVOTHYROXINE 50 MCG TAB PO SCH (06:35)
[2017-07-10] MEDS: INSULIN LISPRO 100 UNIT/ML SC SCH (09:29)
--- NOTE | 2017-07-10 09:39 | ASMTCMCOM ---
CM Note CM Note Notes: Patient admitted for sepsis secondary to pyelonephritis. She is being treated with IV abx and her home meds. Patient is normally independent, employed, and . She will not have any discharge needs, but if she does, Case Managment can assist. Date Signed: 07/10/2017 09:38 AM Electronically Signed By:Jolie Thakur RN
[2017-07-10] MEDS: ENOXAPARIN 40 MG/0.4 ML SYR SC SCH (09:47)
[2017-07-10 11:36] VITALS: BP 143/104; PULSE 72; TEMP 98.7; O2SAT 92
--- NOTE | 2017-07-10 11:40 | HOSPPROG ---
Hospitalist Progress Note Assessment/Plan: Sepsis 2/2 pyelonephritis - 3/4 SIRS (T, HR, WBC), SOFA 6 on admission. Has not required pressors. CT abd showed urothelial inflammation. 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 BCx's ngtd (07/07 ED visit). BP's improved. septic physiology has resolved Hypertension - hypotensive on admission, BP's now normalized with IVF resuscitation holding outpt anti-hypertensives, resume as indicated Hypokalemia / Hypomagnesemia - replaced Chest pain - reported on arrival to SDU, resolved. ekg non-ischemic, trops neg x2 Diabetes - bg's 100's. - holding metformin given recent contrast load - cont SSI # Migraine agee - unilateral with photosensitivity, has h/o migraines though not for ~3 yrs - IV toradol / phenergan - resume outpt hormone therapy, not sure if holding these played a role in provoking agee # Hypothyroid - cont home synthroid dose Diet - Regular Code - Full Ppx - LMWH Dispo - home today >30 minutes Subjective: has a migraine Objective: Vital Signs Temp Pulse Resp BP Pulse Ox 37.1 C 72 16 143/104 H 92 07/10/17 08:00 07/10/17 08:00 07/10/17 08:00 07/10/17 08:00 07/10/17 08:00 Laboratory Results 07/10/17 06:27 07/09/17 07/10/17 07/11/17 05:59 05:59 05:59 Intake Total 500 Output Total 900 650 Balance -400 -650 PT 14.3 SEC (12.0-15.0) 07/08/17 05:03 INR 1.09 (0.83-1.16) 07/08/17 05:03 - Physical Exam Constitutional: no apparent distress, appears nourished Eyes: PERRL, anicteric sclera Ears, Nose, Mouth, Throat: moist mucous membranes, hearing normal Cardiovascular: regular rate and rhythym, no murmur, rub, or gallop Respiratory: no respiratory distress, no rales or rhonchi Gastrointestinal: normoactive bowel sounds, soft, non-tender abdomen Genitourinary: no bladder fullness, No nascimento in urethra Skin: warm, normal color Musculoskeletal: full muscle strength Neurologic: AAOx3 ICD10 Worksheet Patient Problems: Problems Problem Status Onset Dehydration Acute Febrile illness Acute Pyelonephritis Acute Sepsis Acute UTI (urinary tract infection) Acute S/P laparoscopic assisted vaginal hysterectomy ([facility]) Acute
--- NOTE | 2017-07-10 12:08 | GDS ---
[f rep st] DISCHARGE SUMMARY DISCHARGE DIAGNOSIS: 1. Sepsis. 2. Pyelonephritis. 3. Prediabetes. 4. Migraines. 5. Hypertension. Please see admission history and physical by Dr. Panchal. The patient presented to the ER early i n the morning on the after having been seen on the with a urinary tract infection and fever. She had ongoing fever and she was admitted to the step-down unit. She did not require pressors. Sh e was volume resuscitated. Lactate was 2.1 and norm to 3.2, followed by 1.7. She did not have end-o rgan damage. Urine grew out an E. coli that was fluoroquinolone and ceftriaxone sensitive. She was influenza negative. She had negative blood cultures. She is discharged home to complete a 10-day co urse of antibiotics. She was also given a prescription for Imitrex as she has recurrent migraines. /[id number]/MODL
[2017-07-10] MEDS: DHEA PO SCH (12:43)
[2017-07-10] MEDS: [UNRECOGNIZED DRUG - OTHER] PO SCH (12:43)
== END 2017-07-10 12:50 | disposition home or self-care (01) | DRG 872 ==
LOC: INTOOBSV 05:52 → F2N 07:45 → F3N 07-09 11:21 → OBSVTOIN 07-09 17:46
PROVIDERS: ADMIT Student in an Organized Health Care Education/Training Program; ATTEND Student in an Organized Health Care Education/Training Program
DX: A41.51 Sepsis due to Escherichia coli [E. coli] (principal); N12 Tubulo-interstitial nephritis, not specified as acute or chronic; R73.03 Prediabetes; I10 Essential (primary) hypertension; G43.909 Migraine, unspecified, not intractable, without status migrainosus; E03.9 Hypothyroidism, unspecified; E86.0 Dehydration; Z90.710 Acquired absence of both cervix and uterus; Z79.84 Long term (current) use of oral hypoglycemic drugs
CPT/HCPCS: 96365; G0378; J0456; J0696; J1650; J1885; J2270; J2405; J2550; J3475; J3480; P9041

== ENCOUNTER 2017-07-12 04:45 | Observation (INO) | payer BC ==
[2017-07-12] MEDS ORDERED: NS 1,000 ML IV ONE ×2 (05:04→06:47)
--- NOTE | 2017-07-12 05:04 | EDPHY ---
H & P Stated Complaint: FEVER D/C'D SATURDAY HPI/ROS: HPI CHIEF COMPLAINT: Fever, recent UTI, pyelonephritis, sepsis HISTORY OF PRESENT ILLNESS: Patient very pleasant 47-year-old female who I saw on the for urinary tract infection/pyelonephritis and sepsis, she was admitted to the step-down unit at that time and resuscitated. She did well. She had urine culture that was sensitive to Rocephin and fluoroquinolones. She was discharged and given return precautions. She now presents back to the emergency room as she had a fever greater than 101.6 at home. Patient states that she has been taking her Levaquin. Additionally she reports that around 4: 00 a.m. She woke up with chills and not feeling well. She could not get warm. She took a temperature was 101.6 degrees. She took Tylenol prior to arrival and her current temperature at triage is 99.5 she does state that she feels a little bit more labored breathing and chills and not feeling well tonight. She states since being discharged yesterday she felt well. Past Medical History: Hypertension, migraine headaches, recent hospitalization for UTI sepsis Past Surgical History: Hysterectomy Social History: Denies drugs alcohol tobacco. Family History: Noncontributory. ROS REVIEW OF SYSTEMS: A comprehensive 10 point review of systems is otherwise negative aside from elements mentioned in the history of present illness. Exam Constitutional appears nontoxic triage nursing summary reviewed, vital signs reviewed, awake/alert. Eyes normal conjunctivae and sclera, EOMI, PERRLA. HENT normal inspection, atraumatic, moist mucus membranes, no epistaxis, neck supple/ no meningismus, no raccoon eyes. Respiratory clear to auscultation bilaterally, normal breath sounds, no respiratory distress, no wheezing. Cardiovascular rate normal, regular rhythm, no murmur, no edema, distal pulses normal. Gastrointestinal soft, non-tender, no rebound, no guarding, normal bowel sounds, no distension, no pulsatile mass. Genitourinary no CVA tenderness. Musculoskeletal no midline vertebral tenderness, full range of motion, no calf swelling, no tenderness of extremities, no meningismus, good pulses, neurovascularly intact. Skin pink, warm, & dry, no rash, skin atraumatic. Neurologic awake, alert and oriented x 3, AAOx3, moves all 4 extremities equally, motor intact, sensory intact, CN II-XII intact, normal cerebellar, normal vision, normal speech. Psychiatric normal mood/affect. Heme/Lymph/Immune no lymphadenopathy. Differential Diagnosis: Includes but is not limited to in a particular order, UTI, sepsis, bacteremia, dehydration, electrolyte abnormality, worsening pyelonephritis Medical Decision Making: Plan for this patient IV establishment with blood draw check white count, IV hydration Re-evaluation: 0632: Spoke with Dr. Schwartz, agrees to admit the patient. Additionally updated the patient I did recommend that we observe her today given that she had a fever to 101.6. She is afebrile here. Blood work is reassuring potassium slightly low. Patient be admitted to the hospital for acute febrile illness again. Risk for sepsis and risk for bacteremia. Patient been taking Levaquin. Patient been ordered Rocephin here in the emergency room. She is not hypotensive or tachycardic. She is not febrile. She agrees for admission for observation today. Source: Patient - Personal History Current Tetanus Diphtheria and Acellular Pertussis (TDAP): Yes - Medical/Surgical History Hx Asthma: No Hx Chronic Respiratory Disease: No Hx Diabetes: No Hx Cardiac Disease: No Hx Renal Disease: No Hx Cirrhosis: No Hx Alcoholism: No Hx HIV/AIDS: No Hx Splenectomy or Spleen Trauma: No Other PMH: r ankle surgery, hysterectomy, hypothyroid, hypertension, SEPSIS - Social History Smoking Status: Never smoked Constitutional: Initial Vital Signs Temperature (C) 37.5 C 07/12/17 04:49 Heart Rate 87 07/12/17 04:49 Respiratory Rate 16 07/12/17 04:49 Blood Pressure 140/94 H 07/12/17 04:49 O2 Sat (%) 95 07/12/17 04:49 O2 Delivery Mode Room Air Allergies/Adverse Reactions: No Known Allergies Allergy (Verified 07/08/17 04:53) Home Medications: Medication Instructions Recorded Biesta 1.75mg/0.25ml 1 isidro TP HS 07/08/17 Compounded Progesterone 200mg 1 each PO HS 07/08/17 Dhea/Progenolone 1 each PO DAILY 07/08/17 Glucosamine Sulfate [Glucosamine 500 mg PO DAILY 07/08/17 Sulfate 500 MG (*)] Levothyroxine [Synthroid 50 mcg 50 mcg PO DAILY06 07/08/17 (*)] [place]-3 Fatty Acids [Fish Oil 1000 1,000 mg PO DAILY 07/08/17 mg (*)] Progesterone 50mg/0.25ml Cream 1 isidro TP HS 07/08/17 Triamterene/Hctz 37.5/25 [Dyazide 1 each PO DAILY 07/08/17 37.5/25 (*)] Vitamin B Complex/Folic Acid 0.4 mg PO DAILY 07/08/17 [B-Complex Tablet] metFORMIN SR [Glucophage XR 500 mg 1,000 mg PO DAILY 07/08/17 (*)] SUMAtriptan [Imitrex 50 MG (*)] 50 mg PO Q2H PRN #20 tab 07/10/17 levOFLOXACIN [Levofloxacin] 500 mg PO DAILY #7 tablet 07/10/17 Medical Decision Making - Data Points Laboratory Results: Laboratory Results 07/12/17 05:30 07/12/17 07/12/17 07/12/17 05:30 05:30 05:30 WBC Pending RBC Pending Hgb Pending Hct Pending MCV Pending MCH Pending MCHC Pending RDW Pending Plt Count Pending MPV Pending Neut % (Auto) Pending Lymph % (Auto) Pending Glades % (Auto) Pending Eos % (Auto) Pending Baso % (Auto) Pending Nucleat RBC Rel Count Pending Absolute Neuts (auto) Pending Absolute Lymphs (auto) Pending Absolute Monos (auto) Pending Absolute Eos (auto) Pending Absolute Basos (auto) Pending Absolute Nucleated RBC Pending Immature Gran % Pending Immature Gran # Pending VBG Lactic Acid 1.0 mmol/L mmol/L (0.7-2.1) Sodium 140 mEq/L mEq/L (135-145) Potassium 3.2 mEq/L L mEq/L (3.5-5.2) Chloride 104 mEq/L mEq/L (97-110) Carbon Dioxide 22 mEq/l mEq/l (22-31) Anion Gap 14 mEq/L mEq/L (8-16) BUN 10 mg/dL mg/dL (7-23) Creatinine 0.7 mg/dL mg/dL (0.6-1.0) Estimated GFR > 60 Glucose 115 mg/dL H mg/dL (70-100) Calcium 8.9 mg/dL D mg/dL (8.5-10.4) Medications Given: Discontinued Medications Sodium Chloride (Ns) 1,000 mls @ 0 mls/hr IV EDNOW ONE; Wide Open PRN Reason: Protocol Stop: 07/12/17 05:05 Last Admin: 07/12/17 05:35 Dose: 1,000 mls Departure - Departure Disposition: [facility] Inpatient Acute Clinical Impression: Fever Qualifiers: Fever type: unspecified Qualified Code(s): R50.9 - Fever, unspecified UTI (urinary tract infection) Qualifiers: Urinary tract infection type: acute cystitis Hematuria presence: with hematuria Qualified Code(s): N30.01 - Acute cystitis with hematuria Condition: Fair Referrals: Yao Berrios DO [Doctor of Osteopathy] - As per Instructions
[2017-07-12 05:55] LABS: PLATELET COUNT 173 10^3/uL (150-400)
[2017-07-12 07:23] VITALS: RESP 16
[2017-07-12 08:14] VITALS: BP 136/86; PULSE 64; TEMP 98.1; O2SAT 93
[2017-07-12] MEDS ORDERED: ONDANSETRON DISINTEGRATING 4 MG TAB PO PRN (08:16)
[2017-07-12] MEDS ORDERED: ACETAMINOPHEN 325 MG TAB PO PRN (08:16)
[2017-07-12] MEDS ORDERED: ONDANSETRON 4 MG/2 ML VIAL IVP PRN (08:16)
[2017-07-12] MEDS ORDERED: ENOXAPARIN 40 MG/0.4 ML SYR SC SCH (09:00)
--- NOTE | 2017-07-12 10:02 | GHP ---
[f rep st] HISTORY AND PHYSICAL DATE OF ADMISSION: 07/12/2017 ADMISSION HISTORY AND PHYSICAL/DISCHARGE SUMMARY HISTORY OF PRESENT ILLNESS: The patient is a 47-year-old female with a history of hypertension, pred iabetes, and a recent admission for pyelonephritis with negative blood cultures, who presents with fe verena. She was discharged on the . The patient had negative blood cultures. She has been having f leonardo at 4:00 a.m. Her hospital course was complicated by a migraine. She had not had one in years. She had been eating and drinking well at home. She has not had back pain. She actually feels quit e well except when she has these fevers. She had been taking scheduled Tylenol during the day, but i t appeared that she was having breakthrough fevers overnight. When I speak with the patient, she feels well. She is afebrile, and she is anxious for discharge. REVIEW OF SYSTEMS: A complete 10-point review of systems was conducted and negative except as noted in the HPI. PAST MEDICAL HISTORY: Prediabetes, hypertension, migraines, recent pyelonephritis. FAMILY HISTORY: Notable for cancer. SOCIAL HISTORY: She is a nonsmoker. Drinks rare alcohol. present at the bedside. ALLERGIES: No known drug allergies. HOME MEDICATIONS: Byetta, progesterone, DHEA prep, pregnenolone, glucosamine, levofloxacin, levothyr oxine, metformin, fish oil, progesterone cream, sumatriptan, triamterene/hydrochlorothiazide, and vit palumbo D. PHYSICAL EXAMINATION: VITAL SIGNS: Temp 37.5, blood pressure 140/94, pulse 87, breathing 16 times a minute, 95% on room air. GENERAL: No acute distress. HEENT: Sclerae anicteric. Oropharynx clear . Mucous membranes moist. NECK: Supple, without lymphadenopathy or JVD. LUNGS: Clear to ausculta tion bilaterally. HEART: S1, S2. ABDOMEN: Soft, nontender, nondistended. LOWER EXTREMITIES: Wit hout edema. Calves are nontender. SKIN: Without rash. NEUROLOGIC: Exam is nonfocal. LABORATORY DATA: White count 5, hematocrit 33, which is baseline, platelets 173,000. Venous lactate normal at 1. Chem-7 showed normal with the exception of a potassium of 3.2. I discussed the case with Dr. Remy Rosales. ASSESSMENT AND PLAN: This is a 47-year-old female with pyelonephritis and ongoing fevers. 1. Fevers. Fevers are the expected sequelae of pyelonephritis, even on appropriate antibiotic thera py. Her Escherichia coli is both levofloxacin and ceftriaxone sensitive. That antibiotic therapy agee s been continued. She has no signs indicative of an abscess. Notably, her blood cultures remain neg ative. She is discharged home with a plan for scheduled Tylenol during the day and nocturnal Aleve, with the plan to return for further evaluation should she develop fevers past 7 days and/or has back pain, confusion, or hypotension. 2. Prediabetes. We will continue her metformin on discharge. 3. Hypertension. Continue her medications on discharge. 4. Migraines. She does not have one. 5. Disposition: Home today. /[id number]/MODL
== END 2017-07-12 10:09 | disposition home or self-care (01) ==
LOC: F3E 07:56
PROVIDERS: ADMIT Family Medicine; ATTEND Internal Medicine
DX: R50.9 Fever, unspecified (principal); G43.909 Migraine, unspecified, not intractable, without status migrainosus; E86.9 Volume depletion, unspecified; I10 Essential (primary) hypertension; E03.9 Hypothyroidism, unspecified; R73.03 Prediabetes; Z79.2 Long term (current) use of antibiotics; Z79.84 Long term (current) use of oral hypoglycemic drugs; Z87.440 Personal history of urinary (tract) infections
CPT/HCPCS: G0378 ×2; J0696

== ENCOUNTER → 2017-12-02 | Outpatient (CLI) | payer BC | LOC: CIMAGING 14:43 | PROVIDERS: ATTEND Family Medicine | DX: M25.561 Pain in right knee (principal) | CPT/HCPCS: 73562-PO ==

== ENCOUNTER → 2018-07-22 | Outpatient (CLI) | payer BC | LOC: CIMAGING 09:21 | PROVIDERS: ATTEND Family Medicine | DX: Z12.31 Encounter for screening mammogram for malignant neoplasm of breast (principal); Z80.3 Family history of malignant neoplasm of breast ==